=== PATIENT | female | born 1975 | race Caucasian/White ===

== ENCOUNTER 2016-12-06 08:03 | Emergency (ER) | payer MEDICARE ==
[2016-12-06 08:34] LABS: URINE BILIRUBIN NEGATIVE (NEGATIVE); URINE BLOOD TRACE (NEGATIVE); URINE GLUCOSE (UA) NORMAL (NORMAL); URINE KETONE NEGATIVE (NEGATIVE); URINE LEUKOCYTE ESTERASE TRACE (NEGATIVE); URINE NITRATE NEGATIVE (NEGATIVE); URINE PROTEIN TRACE (NEGATIVE)
[2016-12-06 08:40] LABS: BASO % 0.2 % (0.1-1.2); EOS # 0.1 10_X3_uL (0.0-0.4); EOS % 0.8 % (0.7-5.8); GRAN # 8.3 10_X3_uL (1.6-6.1); HEMATOCRIT 41.6 % (34-45); HEMOGLOBIN 13.7 g/dL (11.2-15.7); LYMPH # 0.9 10_X3_uL (1.2-3.7); LYMPH % 9.1 % (19.3-51.7); MEAN CORPUSCULAR HGB CONC 32.9 g/dL (32.0-36.0); MEAN CORPUSCULAR VOLUME 87.9 fL (79-95); MEAN PLATELET VOLUME 10.7 fl (7.5-11.5); MONO # 0.6 10_X3_uL (0.2-0.9); MONO % 5.9 % (4.7-12.5); PLATELET COUNT 281 x10_3/uL (182-369); RED BLOOD COUNT 4.73 x10_6/uL (3.9-5.2); RED CELL DISTRIBUTION WIDTH 14.8 % (11.7-14.4); WHITE BLOOD COUNT 9.9 x10_3/uL (4.0-10.0)
[2016-12-06 08:53] LABS: ALBUMIN 4.3 gm/dL (3.4-5.0); ALKALINE PHOSPHATASE 87 U/L (50-136); ALT/SGPT 15 U/L (3.5-33.9); AMYLASE 58 U/L (15.62-74.58); AST/SGOT 18 U/L (7.04-26.96); BILIRUBIN,TOTAL 0.38 mg/dL (0.0-1.0); BLOOD UREA NITROGEN 11 mg/dL (7-18); CALCIUM 8.6 mg/dL (8.7-10.7); CARBON DIOXIDE 22 mmol/L (21-32); CREATININE < 0.5 mg/dL (0.6-1.3); GLUCOSE,RANDOM 104 mg/dL (70-99); LIPASE 20 U/L (6.75-60.75); POTASSIUM 4.4 mmol/L (3.5-5.1); SODIUM 136 mmol/L (136-145); TOTAL PROTEIN 7.7 gm/dL (6.4-8.2)
[2016-12-06 08:58] LABS: URINE RBC 0-5 /[HPF] (0-2); URINE SQUAMOUS EPITHELIAL CELL 0-10 /[HPF] (NONE SEEN); URINE WBC 0-5 /[HPF] (0-5)
[2016-12-06 08:59] LABS: URINE BACTERIA 1+ (NONE SEEN); URINE YEAST FEW (NONE SEEN)
== END 2016-12-06 09:47 | disposition home or self-care (01) ==
LOC: ER 08:03
PROVIDERS: General Practice
DX: N39.0 Urinary tract infection, site not specified (principal); R91.1 Solitary pulmonary nodule; N83.201 Unspecified ovarian cyst, right side; R30.0 Dysuria; R11.2 Nausea with vomiting, unspecified; R19.7 Diarrhea, unspecified; R10.84 Generalized abdominal pain; G89.29 Other chronic pain; M54.9 Dorsalgia, unspecified; G62.9 Polyneuropathy, unspecified; Z98.84 Bariatric surgery status; Z79.899 Other long term (current) drug therapy
CPT/HCPCS: 36415; 80053; 81001; 81025; 82150; 83690; 85025; 87086; 96374; 99070; 99284; 99284-25; J7040